=== PATIENT | female | born 1945 | race Caucasian/White ===

== ENCOUNTER 2016-10-10 08:05 | Emergency (ER) | payer OTHER ==
[2016-10-10 08:14] VITALS: RESP 14; TEMP 97.9
--- NOTE | 2016-10-10 08:24 | EDPHY ---
H & P Stated Complaint: Left arm pain HPI/ROS: CHIEF COMPLAINT: Left forearm injury HISTORY OF PRESENT ILLNESS: The patient is a 71 y/o female arriving with her family member complaining of left arm pain and swelling secondary to a fall yesterday. She tripped and she fell landing on her left forearm. She didn't have much initial pain and continued her day normally, but by this morning she noticed significant bruising, redness, and swelling around the dorsal and volar aspects of her forearm and moderate pain with range of motion of her wrist. She denies head strike, loss of consciousness, spinal pain, weakness, paresthesias, or any other injury from the fall. No anticoagulants or other pertinent medical history. - Personal History Current Tetanus Diphtheria and Acellular Pertussis (TDAP): Yes - Medical/Surgical History PMH: Depression Hx Asthma: No Hx Chronic Respiratory Disease: No Hx Diabetes: No Hx Cardiac Disease: No Hx Renal Disease: No Hx Cirrhosis: No Hx Alcoholism: No Hx HIV/AIDS: No Hx Splenectomy or Spleen Trauma: No Other PMH: Attempted suicide x1 (hospitalized) - Social History Smoking Status: Never smoked Additional Social History: Family member at bedside. - Physical Exam Exam: General Appearance: Alert, no distress Neck: Supple Respiratory: No respiratory distress Cardiovascular: Normal capillary refill Neurological: A&O, nonfocal, normal gait, normal strength and sensation in left extremity Skin: Warm and dry, no rash Extremities: Left upper extremity: erythema on dorsal aspect of distal forearm, ecchymosis on volar aspect with swelling, mild pain with ROM of wrist, no pain at elbow, on proximal third of ulnar aspect there is an area of swelling and erythema with overlying abrasion. Other extremities are nontender, no pedal edema Psychiatric: Mood and affect normal Constitutional: Initial Vital Signs Temperature (C) 36.6 C 10/10/16 08:09 Heart Rate 86 10/10/16 08:09 Respiratory Rate 14 10/10/16 08:09 Blood Pressure 148/90 H 10/10/16 08:09 O2 Sat (%) 97 10/10/16 08:09 O2 Delivery Mode Room Air Allergies/Adverse Reactions: No Known Allergies Allergy (Unverified 10/10/16 08:14) Home Medications: Medication Instructions Recorded CeleBREX 10/10/16 Hydrocodone/APAP 5/325 [Ewing 1 - 2 tab PO Q4H PRN #10 tab 10/10/16 5/325] Medical Decision Making - Diagnostics Imaging Results: Imaging Impressions Forearm X-Ray 10/10/16 08:28 Impression: 1. Acute comminuted intra-articular impacted distal left radius fracture with slight dorsal angulation. 2. No definite ulnar fracture Wrist X-Ray 10/10/16 08:28 Impression: 1. Acute comminuted intra-articular impacted distal left radius fracture with slight dorsal angulation. 2. Probable old scaphoid fracture. Imaging: I viewed and interpreted images myself Procedures: An OrthoGlass sugartong wrist splint was placed by the hvac controls technician. Neurovascularly intact after application. ED Course/Re-evaluation: 71-year-old female presents with left forearm pain, ecchymosis, and swelling secondary to a mechanical fall last night. She has significant volar ecchymosis and dorsal swelling and erythema along her distal left forearm as well as pain with ROM of her wrist. She is neurovascularly intact and there is no evidence of compartment syndrome or other joint injuries. X-ray reveals distal radius fracture without significant malalignment. She will be placed in a splint/sling and given standard fracture care instructions and referral to ortho. Return precautions given. She is comfortable with this plan. Departure - Departure Disposition: Home, Routine, Self-Care Clinical Impression: Distal radius fracture, left Qualifiers: Encounter type: initial encounter Fracture type: closed Fracture morphology: other fracture Qualified Code(s): S52.592A - Other fractures of lower end of left radius, initial encounter for closed fracture Condition: Good Instructions: Wrist Fracture in Adults (ED) Additional Instructions: 1. Use 600mg ibuprofen every 6-8 hours for pain and inflammation over the next few days. Apply ice packs to sore areas. 2. Keep splint clean, dry, and in place until follow up with orthopedist. 3. Follow up with an orthopedist in the next week. 4. Return to the ED for dramatic increasing in redness or swelling, fever, weakness or numbness in your fingers, or other worsening of condition. Referrals: Yasemin Rosenbaum MD [Primary Care Provider] - As per Instructions Juan Jose Landaverde MD [Medical Doctor] - As per Instructions Prescriptions: Hydrocodone/APAP 5/325 [Ewing 5/325] 1 - 2 tab PO Q4H PRN #10 tab PRN Reason: Pain, Moderate Report Scribed for: Liz Anderson Report Scribed by: Padmini Cross Date of Report: 10/10/16 Time of Report: 08:20 Physician Review and Approval Statement: 10/10/16 08:20 Portions of this note were transcribed by a medical claims examiner. I personally performed a history, physical exam, medical decision making, and confirmed accuracy of information the transcribed note.
[2016-10-10 09:34] VITALS: BP 128/75; PULSE 75; O2SAT 95
== END 2016-10-10 09:34 | disposition home or self-care (01) ==
DX: S52.592A Other fractures of lower end of left radius, initial encounter for closed fracture (principal); W01.0XXA Fall on same level from slipping, tripping and stumbling without subsequent striking against object, initial encounter
CPT/HCPCS: 73090; 73110; 99283; A4565

== ENCOUNTER → 2018-10-03 | Outpatient (CLI) | payer OTHER | LOC: FIMAGING 13:27 ==